=== PATIENT | male | born 1960 | race Caucasian/White ===

== ENCOUNTER 2020-04-04 16:07 | Emergency (ER) | payer OTHER ==
[~2020-04-04] VITALS: Ht 172.7 cm; Wt 113.4 kg
[2020-04-04] MEDS ORDERED: NEURONTIN300 MG (16:30)
[2020-04-04] MEDS ORDERED: LISINOPRIL-HCT1 EAC1 (16:30)
[2020-04-05] MEDS ORDERED: PROTONIX40 MG PO (05:49)
[2020-04-05] MEDS ORDERED: PEPCID40 MG PO (05:49)
== END 2020-04-05 05:30 | disposition home or self-care (01) ==
LOC: ER 16:07 → CPU-OBS 16:54 → ER 04-05 05:30
DX: K29.60 Other gastritis without bleeding (principal); K52.89 Other specified noninfective gastroenteritis and colitis; A05.9 Bacterial foodborne intoxication, unspecified; R10.13 Epigastric pain
CPT/HCPCS: G0378; G0379; 36600; 76700; 82805; 93005

== ENCOUNTER 2021-08-14 07:30 | Outpatient (CLI) | payer OTHER ==
[~2021-08-14 07:30] MED LIST: LISINOPRIL-HCT1 EAC1; NEURONTIN300 MG; PEPCID40 MG PO; PROTONIX40 MG PO
== END 2021-08-14 07:40 | disposition home or self-care (01) ==
LOC: TOM 07:30
PROVIDERS: ATTEND Colon & Rectal Surgery
DX: K57.90 Diverticulosis of intestine, part unspecified, without perforation or abscess without bleeding (principal)

== ENCOUNTER 2022-02-09 22:00 | Emergency (ER) | payer OTHER ==
[~2022-02-09] VITALS: Ht 172.7 cm; Wt 95.3 kg
[2022-02-10] MEDS ORDERED: INTESTINEX680 M1 PO (02:00)
[2022-02-10] MEDS ORDERED: PROTONIX20 MG PO (02:00)
[2022-02-10] MEDS ORDERED: PEPCID AC20 MG PO (02:00)
[2022-02-10] MEDS ORDERED: LEVSIN0.125 MG PO (02:00)
== END 2022-02-10 03:41 | disposition home or self-care (01) ==
LOC: ER 22:00
DX: K52.9 Noninfective gastroenteritis and colitis, unspecified (principal); K29.70 Gastritis, unspecified, without bleeding; K57.30 Diverticulosis of large intestine without perforation or abscess without bleeding; Z91.018 Allergy to other foods; I10 Essential (primary) hypertension

== ENCOUNTER 2022-03-27 05:07 | Emergency (ER) | payer OTHER ==
[~2022-03-27] VITALS: Ht 172.7 cm; Wt 88.5 kg
[~2022-03-27 05:07] MED LIST changes: +INTESTINEX680 M1 PO; +LEVSIN0.125 MG PO; +PEPCID AC20 MG PO; +PROTONIX20 MG PO
== END 2022-03-27 19:06 | disposition home or self-care (01) ==
LOC: ER 05:07
DX: K57.32 Diverticulitis of large intestine without perforation or abscess without bleeding (principal); K52.9 Noninfective gastroenteritis and colitis, unspecified; R10.13 Epigastric pain; I10 Essential (primary) hypertension; Z91.018 Allergy to other foods

== ENCOUNTER 2023-09-11 08:40 | Emergency (ER) | payer OTHER ==
[~2023-09-11] VITALS: Ht 172.7 cm; Wt 102.1 kg
[2023-09-11 09:19] LABS: HEMATOCRIT 43.8 % (39.0-48.0); HEMOGLOBIN 15.6 g/dL (13-16.00); MEAN CELL VOLUME 91.3 fL (80.0-100.00); MEAN CORPUSCULAR HEMOGLOBIN 32.5 pg (27.00-32.0); MEAN CORPUSCULAR HGB CONC 35.6 g/dl (32.0-36.0); PLATELET COUNT 193 K/uL (150-450); RED CELL DISTRIBUTION WIDTH 12.9 % (11.5-14.5)
[2023-09-11 10:28] LABS: ALBUMIN 3.7 gm/dL (3.4-5.0); BILIRUBIN TOTAL 2.05 mg/dL (0.3-1.2); CALCIUM 8.7 mg/dL (8.5-10.1); CREATININE SERUM 0.86 mg/dL (0.70-1.30); GFR 89.53; GLOBULINA 3.9 G/DL (2.4-3.5); POTASSIUM 3.42 mEq/L (3.5-5.1); TOTAL PROTEIN 7.6 gm/dL (6.4-8.2)
[2023-09-11 11:42] LABS: PH,URINE 6.5 (5.0-8.0); URINE APPEARANCE Clear; URINE BILIRRUBIN Negative (NEGATIVE); URINE BLOOD Negative; URINE COLOR Yellow; URINE LEUKOCYTE Negative; URINE NITRATE Negative; URINE PROTEIN Trace (NEGATIVE)
[2023-09-11 11:43] LABS: URINE BACTERIA 28.9 uL (0.0-1933); URINE GLUCOSE >=1000 MG/DL (NEGATIVE); URINE RBC 7.3 uL (0.0-20.8); URINE WBC 3.5 uL (0.0-23.2)
[2023-09-11] MEDS ORDERED: PEPCID20 MG PO (12:57)
[2023-09-11] MEDS ORDERED: PROTONIX40 MG PO (12:57)
[2023-09-11] MEDS ORDERED: CARAFATE1 GM/10 ML PO (12:57)
== END 2023-09-11 13:07 | disposition home or self-care (01) ==
LOC: ER 08:40
PROVIDERS: General Practice
DX: K52.89 Other specified noninfective gastroenteritis and colitis (principal)

== ENCOUNTER 2024-04-24 18:47 | Inpatient (IN) | payer OTHER ==
[~2024-04-24] VITALS: Ht 172.7 cm; Wt 104.3 kg
[~2024-04-24 18:47] MED LIST changes: +CARAFATE1 GM/10 ML PO; +PEPCID20 MG PO
--- NOTE | 2024-04-24 18:49 | NUR ---
SE RECIBE PTE ALERTA Y ORIENTADO X3 EN AMBULANCIA. REFIERE DOLOR ABDOMINAL EN EL ALICIA DE HOY Y VOMITOS X1. PARAMEDICOS REFIEREN QUE ADMINISTRARON EN AMBULANCIA PEPCID 20MG Y ZOFRAN 4MG. CANALIZACION EN ANTE BRAZO IAZ #20, RECIBIENDO .[id number]
[2024-04-24 19:58] LABS: HEMATOCRIT 43.9 % (39.0-48.0); HEMOGLOBIN 15.8 g/dL (13-16.00); MEAN CORPUSCULAR HEMOGLOBIN 33.1 pg (27.00-32.0); PLATELET COUNT 242 K/uL (150-450); RED BLOOD COUNT 4.77 M/uL (4.00-6.00); RED CELL DISTRIBUTION WIDTH 12.8 % (11.5-14.5)
[2024-04-24 20:13] LABS: ALBUMIN 3.5 gm/dL (3.4-5.0); BILIRUBIN TOTAL 2.88 mg/dL (0.3-1.2); CALCIUM 8.9 mg/dL (8.5-10.1); CREATININE SERUM 0.78 mg/dL (0.70-1.30); GFR 100.21; GLOBULINA 4.1 G/DL (2.4-3.5); POTASSIUM 3.42 mEq/L (3.5-5.1); TOTAL PROTEIN 7.6 gm/dL (6.4-8.2)
[2024-04-24] MEDS ORDERED: ONDANSETRON HCL 2 MG/ML VIAL IV ONE (20:15)
[2024-04-24] MEDS ORDERED: HYOSCYAMINE SULFATE 0.125 MG TAB.SUBL SL ONE (20:15)
[2024-04-24] MEDS ORDERED: PANTOPRAZOLE SODIUM 40 MG/VIAL VIAL IV PUSH ONE (20:15)
[2024-04-24] MEDS ORDERED: 0.9 % SODIUM CHLORIDE 1,000 ML IV ONE (20:15)
[2024-04-24] MEDS ORDERED: HYOSCYAMINE SULFATE 0.125 MG TAB.SUBL ONE (20:24)
--- NOTE | 2024-04-24 20:41 | NUR ---
SE ORIENTA PTE SOBRE TX A SEGUIR, EL MISMO REFIERE ENTENDER. SE GENNA MUESTRAS DE LAB, SE CANALIZA Y SE ADMINISTRA MED FAVIAN ORDEN MEDICA
[2024-04-24] MEDS ORDERED: PIPERACILLIN/TAZOBACTAM SODIUM 3.375 GM VIAL IV ONE ×2 (21:15→21:34)
[2024-04-24] MEDS ORDERED: KETOROLAC TROMETHAMINE 15 MG VIAL IV ONE (22:00)
[2024-04-24] MEDS ORDERED: KETOROLAC TROMETHAMINE 30 MG VIAL ONE (22:05)
[2024-04-24] MEDS ORDERED: 0.9 % SODIUM CHLORIDE 1,000 ML IV SCH (22:15)
[2024-04-24] MEDS ORDERED: KETOROLAC TROMETHAMINE 15 MG VIAL IU SCH (22:30)
[2024-04-24] MEDS ORDERED: MORPHINE SULFATE 4 MG/ML CARTRIDGE IV PRN (22:30)
[2024-04-24] MEDS ORDERED: MORPHINE SULFATE 4 MG/ML CARTRIDGE IV ONE (22:30)
[2024-04-24] MEDS ORDERED: ACETAMINOPHEN 500 MG GEL..CAP PO PRN (22:30)
[2024-04-24] MEDS ORDERED: METOCLOPRAMIDE HCL 5 MG/ML VIAL ONE (22:39)
[2024-04-24] MEDS ORDERED: METOCLOPRAMIDE HCL 5 MG/ML VIAL IV ONE (22:45)
[2024-04-25] MEDS ORDERED: PIPERACILLIN/TAZOBACTAM SODIUM 3.375 GM in DEXTROSE 5 % IN WATER 100 ML IV SCH
[2024-04-25 00:23] LABS: INR 1.14; PARTIAL THROMBOPLASTIN TIME 30.4 SECONDS (22.0-34.0); PROTHROMBIN TIME 11.9 SECONDS (9.0-11.5)
[2024-04-25 00:28] LABS: ALBUMIN 3.7 gm/dL (3.4-5.0); BILIRUBIN TOTAL 3.16 mg/dL (0.3-1.2); BILIRUBIN,CONJUGATED 1.07 mg/dL (0.0-0.2); BILIRUBIN,UNCONJUGATED 2.09 mg/dL (0.0-0.6); C-REACTIVE PROTEIN 0.9 MG/DL (0.00-0.29); TOTAL PROTEIN 7.9 gm/dL (6.4-8.2)
[2024-04-25] MEDS ORDERED: LISINOPRIL 20 MG TABLET PO SCH (09:00)
[2024-04-25] MEDS ORDERED: HYDROCHLOROTHIAZIDE 25 MG TABLET PO SCH (09:00)
[2024-04-25] MEDS ORDERED: FAMOTIDINE/PF 20 MG in 0.9 % SODIUM CHLORIDE 8 ML IV PUSH SCH (09:00)
[2024-04-25] MEDS ORDERED: ENOXAPARIN SODIUM 40 MG/0.4 ML SYRINGE SUBCUTANEO SCH (09:00)
[2024-04-25] MEDS ORDERED: POTASSIUM BICARBONATE/CIT AC 25 MEQ TABLET.EFF PO NR (10:45)
[2024-04-26 08:04] LABS: HEMATOCRIT 43.2 % (39.0-48.0); HEMOGLOBIN 15.5 g/dL (13-16.00); MEAN CELL VOLUME 93.9 fL (80.0-100.00); MEAN CORPUSCULAR HEMOGLOBIN 33.8 pg (27.00-32.0); PLATELET COUNT 194 K/uL (150-450); RED CELL DISTRIBUTION WIDTH 12.6 % (11.5-14.5)
[2024-04-26 08:32] LABS: ALBUMIN 2.9 gm/dL (3.4-5.0); BILIRUBIN TOTAL 2.83 mg/dL (0.3-1.2); CALCIUM 7.9 mg/dL (8.5-10.1); CREATININE SERUM 0.86 mg/dL (0.70-1.30); GFR 89.53; GLOBULINA 3.4 G/DL (2.4-3.5); MAGNESIUM 2.4 mg/dL (1.8-2.4); PHOSPHOROUS 2.7 mg/dL (2.5-4.9); POTASSIUM 4.01 mEq/L (3.5-5.1); TOTAL PROTEIN 6.3 gm/dL (6.4-8.2)
[2024-04-26 15:20] LABS: PH,URINE 5.5 (5.0-8.0); URINE APPEARANCE Clear; URINE BILIRRUBIN Small (NEGATIVE); URINE BLOOD Negative; URINE COLOR Dark Yellow; URINE GLUCOSE Negative (NEGATIVE); URINE LEUKOCYTE Trace; URINE NITRATE Negative; URINE PROTEIN Trace (NEGATIVE)
[2024-04-26 15:25] LABS: URINE BACTERIA 20.1 uL (0.0-1933); URINE WBC 5.8 uL (0.0-23.2)
[2024-04-27] MEDS ORDERED: AMOX-CLAV 875-1 EAC1 PO (11:54)
[2024-04-27] MEDS ORDERED: INTESTINEX680 M2 PO (11:55)
== END 2024-04-27 14:03 | disposition home or self-care (01) | DRG 392 ==
LOC: ER 18:47 → MEDJ 22:21
PROVIDERS: General Practice; ADMIT Internal Medicine; ATTEND Internal Medicine
PROC: BW21ZZZ Computerized Tomography (CT Scan) of Abdomen and Pelvis (ICD-10-PCS; principal; 2024-04-24)
DX: K57.32 Diverticulitis of large intestine without perforation or abscess without bleeding (principal); E87.6 Hypokalemia; I10 Essential (primary) hypertension